=== PATIENT | female | born 1995 | race Hispanic/Latino ===

== ENCOUNTER 2021-08-02 07:45 | Outpatient (CLI) | payer OTHER | END 2021-08-02 07:46 | disposition home or self-care (01) | LOC: CSHULT 07:45 | PROVIDERS: ATTEND Family Medicine | DX: O09.892 Supervision of other high risk pregnancies, second trimester (principal); Z3A.20 20 weeks gestation of pregnancy | CPT/HCPCS: 76805 ==

== ENCOUNTER 2021-12-12 10:23 | Inpatient (IN) | payer OTHER ==
[2021-12-12] MEDS ORDERED: Lactated Ringer's 1,000 ML IV SCH (10:26)
[2021-12-12] MEDS ORDERED: Promethazine HCl 25 MG/ML VIAL IM PRN ×3 (10:26→16:38)
[2021-12-12] MEDS ORDERED: Ondansetron PF 4 MG/2 ML Vial IVP PRN ×3 (10:26→16:38)
[2021-12-12] MEDS ORDERED: Famotidine/PF 20 mg/2ml Vial SLOW IVP PRN (10:26)
[2021-12-12] MEDS ORDERED: Bicitra 30 ML UDCUP PO PRN (10:26)
[2021-12-12] MEDS ORDERED: CEFAZOLIN 2 GM in Sodium Chloride 0.9% 100 ML IVPB SCH (10:26)
[2021-12-12] MEDS ORDERED: hydrALAZINE 20 MG/ML VIAL SLOW IVP PRN ×2 (10:26→16:38)
[2021-12-12] MEDS ORDERED: Morphine PF 10 MG/10 ML VIAL ONE (11:09)
[2021-12-12] MEDS ORDERED: Fentanyl 100 MCG/2 ML VIAL ONE (11:09)
[2021-12-12] MEDS ORDERED: Ondansetron HCl/PF 4 MG/2 ML Vial IVP PRN (11:30)
[2021-12-12] MEDS ORDERED: Moisturizing Cream (Eucerin) 113 GM JAR TOP PRN (11:30)
[2021-12-12] MEDS ORDERED: diphenhydrAMINE 50 MG/ML VIAL IVP PRN (11:30)
[2021-12-12] MEDS ORDERED: Ketorolac Tromethamine 30 MG/ML VIAL IVP PRN (11:30)
[2021-12-12] MEDS ORDERED: Naloxone HCl 0.4 mg/ml Vial IV PRN (11:30)
[2021-12-12] MEDS ORDERED: Promethazine HCl 25 MG SUPP PR PRN (11:30)
[2021-12-12] MEDS ORDERED: Communication Order-Pharmacy FS SCH (11:30)
[2021-12-12] MEDS ORDERED: Ketorolac Tromethamine 30 MG/ML VIAL IVP SCH ×2 (11:30→18:00)
[2021-12-12] MEDS ORDERED: HYDROmorphone 2 MG/ML VIAL SLOW IVP PRN (11:30)
[2021-12-12] MEDS ORDERED: Fentanyl 100 MCG/2 ML VIAL SLOW IVP PRN (11:30)
[2021-12-12] MEDS ORDERED: Meperidine HCl/PF 25 MG/ML VIAL SLOW IVP PRN (11:30)
[2021-12-12] MEDS ORDERED: Naloxone HCl 0.4 mg/ml Vial IVP PRN ×2 (11:30)
[2021-12-12] MEDS ORDERED: Ondansetron PF 4 MG/2 ML Vial ONE (12:47)
[2021-12-12] MEDS ORDERED: Oxytocin 10 UNITS/ML VIAL ONE (12:47)
[2021-12-12] MEDS ORDERED: Dexamethasone 4 mg/ml Vial ONE (12:47)
[2021-12-12] MEDS ORDERED: Phenylephrine 10 MG/ML VIAL ONE (12:47)
[2021-12-12] MEDS ORDERED: Ketorolac Tromethamine 30 MG/ML VIAL ONE (12:47)
[2021-12-12 13:37] VITALS: BMI 34.0
[2021-12-12] MEDS ORDERED: Boostrix 0.5 ML (Tdap) VIAL (>/=7 yrs of age) IM ONE (16:38)
[2021-12-12] MEDS ORDERED: HYDROcodone/Acetaminophen 5/325 mg Tablet PO PRN (16:38)
[2021-12-12] MEDS ORDERED: Simethicone Chewable 80 MG TAB PO PRN (16:38)
[2021-12-12] MEDS ORDERED: diphenhydrAMINE 25 MG CAP PO PRN (16:38)
[2021-12-12] MEDS ORDERED: Bisacodyl 10 MG SUPP PR PRN (16:38)
[2021-12-12] MEDS ORDERED: Lanolin Ointment 7 GM TUBE TOP PRN (16:38)
[2021-12-12] MEDS ORDERED: Meperidine HCl/PF 25 MG/ML VIAL IM PRN (16:38)
[2021-12-12] MEDS: Ketorolac Tromethamine 30 MG/ML VIAL IVP SCH (19:57)
[2021-12-12] MEDS: Docusate 100 MG CAP PO SCH (21:11)
[2021-12-12] MEDS: Ferrous Sulfate 325 MG TAB PO SCH (21:11)
[2021-12-13] MEDS: Ketorolac Tromethamine 30 MG/ML VIAL IVP SCH ×4 (01:55→14:38)
[2021-12-13 05:01] LABS: Hemoglobin 8.8 g/dL (12.0-15.5); Mean Corpuscular HGB CONC 31.3 g/dL (32.0-36.0); Mean Corpuscular Volume 82.9 fl (81.6-98.3); Mean Platelet Volume 12.7 fl (7.4-10.4); Platelet Count 120 10x3/uL (150-450); RBC Distribution Width 14.4 % (11.5-14.5); Red Blood Cell (RBC) Count 3.39 10x6/uL (3.90-5.03); White Blood Cell (WBC) Count 11.5 10x3/uL (3.5-10.5)
[2021-12-13] MEDS: Docusate 100 MG CAP PO SCH ×2 (08:07→21:11)
[2021-12-13] MEDS: Prenatal Vitamin 1 TAB PO SCH (08:07)
[2021-12-13] MEDS: Ferrous Sulfate 325 MG TAB PO SCH ×2 (08:07→21:11)
[2021-12-13] MEDS: HYDROcodone/Acetaminophen 5/325 mg Tablet PO PRN ×2 (14:40→22:18)
[2021-12-13] MEDS: Ibuprofen 800 MG TAB PO SCH (21:11)
[2021-12-14] MEDS: Ibuprofen 800 MG TAB PO SCH ×3 (05:25→22:00)
[2021-12-14] MEDS: Docusate 100 MG CAP PO SCH ×2 (09:12→21:59)
[2021-12-14] MEDS: Prenatal Vitamin 1 TAB PO SCH (09:12)
[2021-12-14] MEDS: Ferrous Sulfate 325 MG TAB PO SCH ×2 (09:12→21:59)
[2021-12-14] MEDS: HYDROcodone/Acetaminophen 5/325 mg Tablet PO PRN ×2 (09:12→14:29)
[2021-12-15] MEDS: Ibuprofen 800 MG TAB PO SCH (05:24)
[2021-12-15 08:20] VITALS: BP 127/85; TEMP 97.9
[2021-12-15] MEDS: Docusate 100 MG CAP PO SCH (08:38)
[2021-12-15] MEDS: Prenatal Vitamin 1 TAB PO SCH (08:38)
[2021-12-15] MEDS: Ferrous Sulfate 325 MG TAB PO SCH (08:38)
== END 2021-12-15 11:20 | disposition home or self-care (01) | DRG 788 ==
LOC: CSHLD 10:23 → CSHPP 15:55
PROVIDERS: ADMIT Family Medicine; ATTEND Family Medicine
PROC: 10D00Z1 Extraction of Products of Conception, Low, Open Approach (ICD-10-PCS; principal; 2021-12-12)
DX: O80 Encounter for full-term uncomplicated delivery (principal); Z3A.39 39 weeks gestation of pregnancy; Z37.0 Single live birth
CPT/HCPCS: 36415; 51702; 85027; J0690; J1100; J1885; J2274; J2370; J2405; J2550; J2590; J3010; J3490

== ENCOUNTER 2023-08-03 12:58 | Outpatient (CLI) | payer OTHER | END 2023-08-03 12:59 | disposition home or self-care (01) | LOC: CSHULT 12:58 | PROVIDERS: ATTEND Nurse Practitioner Women's Health | DX: Z34.82 Encounter for supervision of other normal pregnancy, second trimester (principal); Z3A.25 25 weeks gestation of pregnancy | CPT/HCPCS: 76805 ==